=== PATIENT | male | born 1985 | race Caucasian/White ===

== ENCOUNTER 2019-06-25 12:02 | Emergency (ER) | payer OTHER ==
[2019-06-25 12:13] VITALS: RESP 18; TEMP 97.4
[2019-06-25] MEDS ORDERED: ONDANSETRON 4 MG/2 ML VIAL IVP STA (13:08)
[2019-06-25] MEDS ORDERED: SODIUM CHLORIDE 0.9% 1,000 ML IV STA (13:08)
[2019-06-25] MEDS ORDERED: KETOROLAC 30 MG/ML 1 ML VIAL IVP STA (13:09)
[2019-06-25 13:22] LABS: Basophils # (A) 0.1 k/uL (0-0.2); Basophils % (A) 1 %; Eosinophils # (A) 0.1 k/uL (0-0.7); Eosinophils % (A) 0 %; HCT 47.1 % (39.0-53.0); HGB 15.6 gm/dL (13.0-17.5); Lymphocytes # (A) 0.8 k/uL (1.0-4.8); Lymphocytes % (A) 4 %; MCH 28.5 pg (25.0-35.0); MCHC 33.2 g/dL (31.0-37.0); MCV 85.8 fL (80.0-100.0); Mean Platelet Volume 7.1; Monocytes # (A) 0.9 k/uL (0-1.0); Monocytes % (A) 4 %; Neutrophils % (A) 90 %; Platelet Count 400 k/uL (150-450); RDW 13.1 % (11.5-15.5); WBC 22.1 k/uL (3.8-10.6)
[2019-06-25 13:29] LABS: ALT 19 U/L (4-49); AST 20 U/L (17-59); African American GFR (CKD) >90 (>60 ml/min/1.73 sqM); Albumin 4.9 g/dL (3.5-5.0); Alkaline Phosphatase 97 U/L (38-126); Amylase 59 U/L (30-110); Anion Gap 11 mmol/L; Blood Urea Nitrogen 10 mg/dL (9-20); Calcium 9.3 mg/dL (8.4-10.2); Carbon Dioxide 24 mmol/L (22-30); Chloride 105 mmol/L (98-107); Glucose 91 mg/dL (74-99); Non-African American GFR(CKD) >90 (>60 ml/min/1.73 sqM); Potassium 5.8 mmol/L (3.5-5.1); Sodium 140 mmol/L (137-145); Total Bilirubin 0.4 mg/dL (0.2-1.3); Total Protein 8.1 g/dL (6.3-8.2)
--- NOTE | 2019-06-25 14:40 | CT ---
EXAMINATION TYPE: CT abdomen pelvis w con DATE OF EXAM: 06/25/2019 COMPARISON: None INDICATION: Nauseated, vomiting, fever DLP: 548.4 mGycm, Automated exposure control for dose reduction was used. CONTRAST: 100 mL of Isovue 300. Study performed without Oral Contrast TECHNIQUE: Axial images were obtained from above the diaphragm to the pubic rami in the axial plane a t 5 mm thick sections. Reconstructed images are reviewed on the computer in the coronal plane. FINDINGS: Limited CT sections are obtained the lung bases. The lung bases are clear. CT ABDOMEN: Liver: Normal Spleen: Normal Pancreas: Normal Adrenal glands: The adrenal glands are normal. Gallbladder: Normal Kidneys: No masses are evident. No hydronephrosis is present. No cysts are present. Delayed images were obtained through the kidneys, which remain unremarkable. Aorta: Vascular calcification is within the aorta. Inferior vena cava: Normal. CT PELVIS: There are fluid-filled loops of bowel within the small bowel loops as well as the colon. Correlate fo r ileus. Gastroenteritis could be considered. The studies performed without oral contrast. Appendix: Not identified. No suspicious inflammatory changes evident. Urinary bladder: Normal. Genitourinary structures: Prostate is normal Osseous structures: No suspicious lytic or sclerotic lesions. IMPRESSIONS: 1. Local consideration for gastroenteritis or ileus is recommended.
[2019-06-25 15:07] LABS: Appearance,Urine Clear (Clear); Bilirubin,Urine Negative (Negative); Blood,Urine Negative (Negative); Color,Urine Light Yellow; Glucose,Urine (UA) Negative (Negative); Ketones,Urine Negative (Negative); Leukocyte Esterase,Urine Negative (Negative); Nitrite,Urine Negative (Negative); Protein,Urine Negative (Negative); Urobilinogen,Urine <2.0 mg/dL (<2.0)
--- NOTE | 2019-06-25 15:19 | ED ---
General Adult HPI - General Chief complaint: Nausea/Vomiting/Diarrhea Stated complaint: Body aches/fever Time Seen by Provider: 06/25/19 12:44 Source: patient, RN notes reviewed Mode of arrival: EMS Limitations: no limitations - History of Present Illness Initial comments: 34-year-old male without any significant past medical history presents to the emergency department for a chief complaint of nausea vomiting diarrhea. This just started today. Patient states he is also having cramping abdominal pain. States he had a similar occurrence 2 weeks ago but that it resolved. Patient states at that time his children were also sick. He denies any recent travel or nursing of visits. Denies starting any new medications. Denies fevers or chills.Patient has no other complaints at this time including shortness of breath, chest pain, headache, or visual changes. - Related Data Previous Rx's Medication Instructions Recorded Dicyclomine [Bentyl] 20 mg PO TID PRN #14 tablet 06/25/19 Ondansetron [Zofran ODT] 4 mg PO Q8HR PRN #15 tab 06/25/19 Allergies Allergy/AdvReac Type Severity Reaction Status Date / Time No Known Allergies Allergy Verified 06/25/19 13:23 Review of Systems ROS Statement: Those systems with pertinent positive or pertinent negative responses have been documented in the HPI. ROS Other: All systems not noted in ROS Statement are negative. Past Medical History Past Medical History: No Reported History History of Any Multi-Drug Resistant Organisms: None Reported Past Surgical History: No Surgical Hx Reported Smoking Status: Current every day smoker Past Alcohol Use History: None Reported Past Drug Use History: None Reported General Exam Limitations: no limitations General appearance: alert, in no apparent distress Head exam: Present: atraumatic, normocephalic, normal inspection Eye exam: Present: normal appearance, PERRL, EOMI. Absent: scleral icterus, conjunctival injection, periorbital swelling ENT exam: Present: normal exam, mucous membranes moist Neck exam: Present: normal inspection, full ROM. Absent: tenderness, meningismu s Respiratory exam: Present: normal lung sounds bilaterally. Absent: respiratory distress, wheezes, rales, rhonchi, stridor Cardiovascular Exam: Present: regular rate, normal rhythm, normal heart sounds. Absent: systolic murmur, diastolic murmur, rubs, gallop, clicks GI/Abdominal exam: Present: soft, normal bowel sounds. Absent: distended, tenderness (Abdomen is nontender, no guarding), guarding, rebound, rigid Neurological exam: Present: alert Course Vital Signs 06/25/19 12:04 Temperature 97.4 F L Pulse Rate 54 L Respiratory 18 Rate Blood Pressure 104/75 O2 Sat by Pulse 99 Oximetry EKG Findings - EKG Comments: EKG Findings:: Status bradycardia, ventricular rate 46, Pr int 138, QTC 362 Medical Decision Making - Medical Decision Making Vitals are stable. Patient is well-appearing. He is complaining of generalized abdominal pain but does not have any tenderness on exam. CBC did reveal a white blood cell count of 22.1 with a left shift. This is likely secondary to vomiting. CMP initially showed hyperkalemia 5.8. This was rechecked and was normal at 5.0. Urinalysis unremarkable. Some evidence of dehydration, patient given fluids. CT abdomen and pelvis was obtained which showed local cons ideration for gastroenteritis or ileus. This is consistent with patient's symptoms of nausea vomiting diarrhea. Patient was given Zofran Toradol and Bentyl and had significant improvement in symptoms. I did discuss return parameters with patient including those for obstruction which he is underst anding of. Discussed following up with primary care in 1-2 days or return if he has any worsening symptoms. He was discharged home with Zofran and Bentyl.I discussed this case with attending Dr. Patel who agrees with this assessment and treatment plan. - Lab Data Result diagrams: 06/25/19 12:18 06/25/19 15:45 Lab Results 06/25/19 06/25/19 06/25/19 Range/Units 12:18 12:18 14:43 WBC 22.1 H (3.8-10.6) k/uL RBC 5.50 (4.30-5.90) m/uL Hgb 15.6 (13.0-17.5) gm/dL Hct 47.1 (39.0-53.0) % MCV 85.8 (80.0-100.0) fL MCH 28.5 (25.0-35.0) pg MCHC 33.2 (31.0-37.0) g/dL RDW 13.1 (11.5-15.5) % Plt Count 400 (150-450) k/uL Neutrophils % 90 % Lymphocytes % 4 % Monocytes % 4 % Eosinophils % 0 % Basophils % 1 % Neutrophils # 20.0 H (1.3-7.7) k/uL Lymphocytes # 0.8 L (1.0-4.8) k/uL Monocytes # 0.9 (0-1.0) k/uL Eosinophils # 0.1 (0-0.7) k/uL Basophils # 0.1 (0-0.2) k/uL Sodium 140 (137-145) mmol/L Potassium 5.8 H (3.5-5.1) mmol/L Chloride 105 (98-107) mmol/L Carbon Dioxide 24 (22-30) mmol/L Anion Gap 11 mmol/L BUN 10 (9-20) mg/dL Creatinine 0.86 (0.66-1.25) mg/dL Est GFR (CKD-EPI)AfAm >90 (>60 ml/min/1.73 sqM) Est GFR (CKD-EPI)NonAf >90 (>60 ml/min/1.73 sqM) Glucose 91 (74-99) mg/dL Calcium 9.3 (8.4-10.2) mg/dL Total Bilirubin 0.4 (0.2-1.3) mg/dL AST 20 (17-59) U/L ALT 19 (4-49) U/L Alkaline Phosphatase 97 (38-126) U/L Total Protein 8.1 (6.3-8.2) g/dL Albumin 4.9 (3.5-5.0) g/dL Amylase 59 (30-110) U/L Lipase 105 (23-300) U/L Urine Color Light Yellow Urine Appearance Clear (Clear) Urine pH 5.0 (5.0-8.0) Ur Specific O'Brien 1.050 H (1.001-1.035) Urine Protein Negative (Negative) Urine Glucose (UA) Negative (Negative) Urine Ketones Negative (Negative) Urine Blood Negative (Negative) Urine Nitrite Negative (Negative) Urine Bilirubin Negative (Negative) Urine Urobilinogen <2.0 (<2.0) mg/dL Ur Leukocyte Esterase Negative (Negative) 06/25/19 Range/Units 15:45 WBC (3.8-10.6) k/uL RBC (4.30-5.90) m/uL Hgb (13.0-17.5) gm/dL Hct (39.0-53.0) % MCV (80.0-100.0) fL MCH (25.0-35.0) pg MCHC (31.0-37.0) g/dL RDW (11.5-15.5) % Plt Count (150-450) k/uL Neutrophils % % Lymphocytes % % Monocytes % % Eosinophils % % Basophils % % Neutrophils # (1.3-7.7) k/uL Lymphocytes # (1.0-4.8) k/uL Monocytes # (0-1.0) k/uL Eosinophils # (0-0.7) k/uL Basophils # (0-0.2) k/uL Sodium (137-145) mmol/L Potassium 5.0 (3.5-5.1) mmol/L Chloride (98-107) mmol/L Carbon Dioxide (22-30) mmol/L Anion Gap mmol/L BUN (9-20) mg/dL Creatinine (0.66-1.25) mg/dL Est GFR (CKD-EPI)AfAm (>60 ml/min/1.73 sqM) Est GFR (CKD-EPI)NonAf (>60 ml/min/1.73 sqM) Glucose (74-99) mg/dL Calcium (8.4-10.2) mg/dL Total Bilirubin (0.2-1.3) mg/dL AST (17-59) U/L ALT (4-49) U/L Alkaline Phosphatase (38-126) U/L Total Protein (6.3-8.2) g/dL Albumin (3.5-5.0) g/dL Amylase (30-110) U/L Lipase (23-300) U/L Urine Color Urine Appearance (Clear) Urine pH (5.0-8.0) Ur Specific O'Brien (1.001-1.035) Urine Protein (Negative) Urine Glucose (UA) (Negative) Urine Ketones (Negative) Urine Blood (Negative) Urine Nitrite (Negative) Urine Bilirubin (Negative) Urine Urobilinogen (<2.0) mg/dL Ur Leukocyte Esterase (Negative) Disposition Clinical Impression: Nausea vomiting and diarrhea Disposition: HOME SELF-CARE Condition: Good Instructions (If sedation given, give patient instructions): Acute Nausea and Vomiting (ED), Acute Diarrhea (ED) Additional Instructions: Please follow up with primary care in 1-2 days. Take Zofran and Bentyl as needed. Return to the emergency department if you have any worsening symptoms. Prescriptions: Dicyclomine [Bentyl] 20 mg PO TID PRN #14 tablet PRN Reason: abdominal pain Ondansetron [Zofran ODT] 4 mg PO Q8HR PRN #15 tab PRN Reason: Nausea Is patient prescribed a controlled substance at d/c from ED?: No Referrals: Heraclio Perea MD [REFERRING] - 1-2 days Time of Disposition: 16:32
[2019-06-25] MEDS ORDERED: DICYCLOMINE 20 MG TAB PO STA (16:18)
[2019-06-25 16:53] VITALS: BP 108/68; PULSE 60
== END 2019-06-25 17:08 | disposition home or self-care (01) ==
LOC: EC 12:02
DX: R11.2 Nausea with vomiting, unspecified (principal); R19.7 Diarrhea, unspecified; D72.829 Elevated white blood cell count, unspecified; R10.84 Generalized abdominal pain; E86.0 Dehydration; F17.200 Nicotine dependence, unspecified, uncomplicated
CPT/HCPCS: 99284; 96374; 96375; 96361 ×4; 36415; 80053; 82150; 83690; 84132; 85025; 81003; 74177; J2405; J1885; Q9967